=== PATIENT | female | born 1990 | race Caucasian/White ===

== ENCOUNTER 2018-10-23 12:47 | Emergency (ER) | payer SELFPAY ==
--- NOTE | 2018-10-23 13:11 | EDPHY ---
HPI/HX/ROS/PE/MDM Narrative: CHIEF COMPLAINT: Lightheaded, lack of appetite, lethargic HPI: The patient is a 28 y/o female with a history of a pulmonary valve replacement and tetralogy fallot complaining of feeling lethargic, lightheaded, and lack of appetite onset 4 days ago after arriving in [place]. This is the first time she has been at this altitude. The patient felt normal prior to leaving the and while visiting [place] (prior to arriving in [place]). On 10/19/18, she started feeling "slow and lethargic" with a decreased appetite, onset several hours after arriving in [place]. This fatigue is exacerbated when she exerts herself. She has never felt this lethargic while at home in the . Currently she is also having a tightening sensation in her chest. She denies lower extremity swelling, but she does wear compression socks as she gets pedal edema when she sits for long periods of time. She takes 75mg Aspirin daily for her valve replacement. No fever, headache, cough, abdominal pain, urinary or bowel complaints, numbness. REVIEW OF SYSTEMS: Aside from elements discussed in the HPI, a comprehensive 10-point review of systems was reviewed and is negative. PMH: Pulmonary valve replacement (2011), Tetralogy of Fallot SOCIAL HISTORY: Mother at bedside, visiting [place] from [place], employed PHYSICAL EXAM: General: Patient is alert, in no acute distress. ENT: Eyes are normal to inspection. ENT inspection normal. Neck: Normal inspection. Full range of motion. Respiratory: No respiratory distress. Breath sounds normal bilaterally. Cardiovascular: Audible click on cardiac exam. Regular rate and rhythm. Strong peripheral pulses. Normal cap refill. Abdomen: The abdomen is nontender to palpation. There are no peritoneal signs. There are normal bowel sounds. Back: Normal to inspection. No tenderness to palpation. Skin: Normal color. No rash. Warm and dry. Extremities: Normal appearance. Full range of motion. No pedal edema or calf tenderness. Neuro: Oriented x3. Normal motor function. Normal sensory function. ED Course: 1311: EKG was ordered and interpreted by myself. Please see [place] system for official reading. 1447: Reassessed patient and discussed laboratory and imaging findings. She is feeling better and continues to decline having chest pain at any time. 500mL IV NS administered. I discussed the possibility of having an echo, but she is declining this. Flu swab still pending. Return precautions provided; patient is comfortable with this plan. MDM: This patient presents with somewhat undefined fatigue and mild shortness of breath, in the setting of recent [place]. Her presentation is complicated by history of congenital Tetralogy of Fallot and several cardiac surgeries. I see no signs of ACS, CHF, pericardial effusion or other specifically cardiac dysfunction. I explained to the patient that an echo would be necessary to rule out any valvular dysfunction or other cardiac disease - she declines this test at this time. I also considered PE, but patient has no pleuritic chest pain, tachycardia or peripheral abnormality to suggest this. Ultimately I informed her that our workup was negative and that the etiology of her symptoms is not currently known. She declined further testing and would like to be discharged. We discussed strict return precautions. - Data Points Imaging Results: Imaging Impressions Chest X-Ray 10/23/18 13:28 Impression: 1. Cardiomegaly and stigmata of open heart surgery. No failure or effusion. 2. Clear lungs. Minimal left basilar scarring versus atelectasis. Imaging: I viewed and interpreted images myself Laboratory Results: Laboratory Results 10/23/18 13:55 10/23/18 13:55 10/23/18 10/23/18 10/23/18 14:29 14:10 13:59 WBC RBC Hgb Hct MCV MCH MCHC RDW Plt Count MPV Neut % (Auto) Lymph % (Auto) [place] % (Auto) Eos % (Auto) Baso % (Auto) Nucleat RBC Rel Count Absolute Neuts (auto) Absolute Lymphs (auto) Absolute Monos (auto) Absolute Eos (auto) Absolute Basos (auto) Absolute Nucleated RBC Immature Gran % Immature Gran # Sodium Potassium Chloride Carbon Dioxide Anion Gap BUN Creatinine Estimated GFR Glucose Calcium POC Troponin I 0.01 ng/mL ng/mL (0.00-0.08) TSH Beta HCG, Qual Urine Color PALE YELLOW Urine Appearance CLEAR Urine pH 8.0 H (5.0-7.5) Ur Specific [place] 1.002 (1.002-1.030) Urine Protein NEGATIVE (NEGATIVE) Urine Ketones NEGATIVE (NEGATIVE) Urine Blood 1+ H (NEGATIVE) Urine Nitrate NEGATIVE (NEGATIVE) Urine Bilirubin NEGATIVE (NEGATIVE) Urine Urobilinogen NEGATIVE EU EU (0.2-1.0) Ur Leukocyte Esterase NEGATIVE (NEGATIVE) Urine RBC NONE SEEN /hpf /hpf (0-3) Urine WBC 1-3 /hpf /hpf (0-3) Ur Epithelial Cells TRACE /lpf /lpf (NONE-1+) Urine Bacteria TRACE /hpf H /hpf (NONE SEEN) Urine Glucose NEGATIVE (NEGATIVE) Nasal Influenza A PCR Pending Nasal Influenza B PCR Pending 10/23/18 10/23/18 10/23/18 13:55 13:55 13:55 WBC 5.68 10^3/uL 10^3/uL (3.80-9.50) RBC 4.55 10^6/uL 10^6/uL (4.18-5.33) Hgb 13.8 g/dL g/dL (12.6-16.3) Hct 41.2 % % (38.0-47.0) MCV 90.5 fL fL (81.5-99.8) MCH 30.3 pg pg (27.9-34.1) MCHC 33.5 g/dL g/dL (32.4-36.7) RDW 13.7 % % (11.5-15.2) Plt Count 191 10^3/uL 10^3/uL (150-400) MPV 10.6 fL fL (8.7-11.7) Neut % (Auto) 52.4 % % (39.3-74.2) Lymph % (Auto) 34.3 % % (15.0-45.0) [place] % (Auto) 10.0 % % (4.5-13.0) Eos % (Auto) 2.6 % % (0.6-7.6) Baso % (Auto) 0.5 % % (0.3-1.7) Nucleat RBC Rel Count 0.0 % % (0.0-0.2) Absolute Neuts (auto) 2.97 10^3/uL 10^3/uL (1.70-6.50) Absolute Lymphs (auto) 1.95 10^3/uL 10^3/uL (1.00-3.00) Absolute Monos (auto) 0.57 10^3/uL 10^3/uL (0.30-0.80) Absolute Eos (auto) 0.15 10^3/uL 10^3/uL (0.03-0.40) Absolute Basos (auto) 0.03 10^3/uL 10^3/uL (0.02-0.10) Absolute Nucleated RBC 0.00 10^3/uL 10^3/uL (0-0.01) Immature Gran % 0.2 % % (0.0-1.1) Immature Gran # 0.01 10^3/uL 10^3/uL (0.00-0.10) Sodium 143 mEq/L mEq/L (135-145) Potassium 3.8 mEq/L mEq/L (3.5-5.2) Chloride 108 mEq/L mEq/L (97-110) Carbon Dioxide 24 mEq/l mEq/l (22-31) Anion Gap 11 mEq/L mEq/L (6-14) BUN 7 mg/dL mg/dL (7-23) Creatinine 0.7 mg/dL mg/dL (0.6-1.0) Estimated GFR > 60 Glucose 91 mg/dL mg/dL (70-100) Calcium 9.0 mg/dL mg/dL (8.5-10.4) POC Troponin I TSH Pending Beta HCG, Qual NEGATIVE Urine Color Urine Appearance Urine pH Ur Specific [place] Urine Protein Urine Ketones Urine Blood Urine Nitrate Urine Bilirubin Urine Urobilinogen Ur Leukocyte Esterase Urine RBC Urine WBC Ur Epithelial Cells Urine Bacteria Urine Glucose Nasal Influenza A PCR Nasal Influenza B PCR Point of Care Test Results: Chemistry 10/23/18 13:59 POC Troponin I 0.01 ng/mL ng/mL (0.00-0.08) General Time Seen by Provider: 10/23/18 13:06 Initial Vital Signs: Initial Vital Signs Temperature (C) 36.5 C 10/23/18 12:51 Heart Rate 70 10/23/18 12:51 Respiratory Rate 20 10/23/18 12:51 Blood Pressure 102/63 10/23/18 12:51 O2 Sat (%) 99 10/23/18 12:51 O2 Delivery Mode Room Air Departure - Departure Disposition: Home, Routine, Self-Care Clinical Impression: Fatigue Condition: Good Instructions: Fatigue (ED) Additional Instructions: Follow-up with your primary doctor within 72 hours. Return to the Emergency Department for fever, chest pain, shortness of breath, increasing pain or other worsening of condition. Referrals: [facility],. [Clinic] - As per Instructions Report Scribed for: Chuck Olmedo Report Scribed by: Aniya Franco Date of Report: 10/23/18 Time of Report: 13:09 Physician Review and Approval Statement: Portions of this note were transcribed by an ED scribe. I personally performed the history, physical exam, and medical decision making; and confirm the accuracy of the information in the transcribed note.
[2018-10-23 14:06] LABS: PLATELET COUNT 191 10^3/uL (150-400)
[2018-10-23] MEDS ORDERED: NS 500 ML IV ONE (14:55)
[2018-10-23 15:46] VITALS: BP 97/56
--- NOTE | 2018-10-24 14:45 | CPEKG ---
Test Reason : OPEN Blood Pressure : / mmHG Vent. Rate : 071 BPM Atrial Rate : 069 BPM P-R Int : 141 ms QRS Dur : 087 ms QT Int : 441 ms P-R-T Axes : 020 067 055 degrees QTc Int : 480 ms Sinus rhythm Paired ventricular premature complexes Abnormal Q suggests anterior infarct Borderline prolonged QT interval Confirmed by Chuck Olmedo ([id number]) on 10/24/2018 2:44:50 PM Referred By: Confirmed By:Chuck Olmedo
== END 2018-10-23 15:46 | disposition home or self-care (01) ==
DX: R53.83 Other fatigue (principal); E86.9 Volume depletion, unspecified; R42 Dizziness and giddiness; Z95.4 Presence of other heart-valve replacement
CPT/HCPCS: 84484-ER